=== PATIENT | female | born 1955 | race African-American/Black ===

== ENCOUNTER 2017-07-28 11:43 | Day surgery (SDC) | payer OTHER ==
[2017-07-28 12:06] VITALS: BMI 42.5
[2017-07-28] MEDS ORDERED: MIDAZOLAM HCL 2 MG/2 ML SINGLE DOSE VIAL ONE (13:00)
--- NOTE | 2017-07-28 13:04 | OP ---
Operative Note - Note: Operative Date: 07/28/17 Pre-Operative Diagnosis: Bladder tumor Operation: TURBT Post-Operative Diagnosis: Same as Pre-op Surgeon: Juan Alvarenga MD. Anesthesia: MAC
[2017-07-28] MEDS ORDERED: GENTAMICIN SO4 80 MG/2 ML VIAL IVPB ONE (13:10)
[2017-07-28] MEDS ORDERED: CLINDAMYCIN PHOSPHATE 600 MG/4 ML VIAL ONE (13:10)
[2017-07-28] MEDS ORDERED: CLINDAMYCIN PHOSPHATE 600 MG/4 ML VIAL IVPB ONE (13:10)
[2017-07-28] MEDS ORDERED: GENTAMICIN SO4 80 MG/2 ML VIAL ONE (13:11)
[2017-07-28] MEDS ORDERED: DEXTROSE 5%-0.45% SALINE 1,000 ML IV SCH (13:15)
[2017-07-28] MEDS ORDERED: ONDANSETRON 4 MG/2 ML VIAL IVPUSH PRN (15:19)
[2017-07-28] MEDS ORDERED: oxyCODONE HCL 5 MG TABLET PO PRN (15:19)
[2017-07-28] MEDS ORDERED: LACTATED RINGERS SOLUTION 1,000 ML IV SCH (15:30)
[2017-07-28] MEDS ORDERED: oxyCODONE HCL 5 MG TABLET ONE (16:24)
[2017-07-28 16:27] VITALS: TEMP 97.9
[2017-07-28 17:52] VITALS: BP 140/88; PULSE 72
--- NOTE | 2017-08-01 13:19 | PATH ---
Surgical Pathology Report Patient Name: LOURDES RENE [facility]. Rec. #: [id number] /Age/Gender: 1955 (Age: 61) / F Account: [id number] Location: [facility] SURGICAL Taken: 07/28/2017 Received: 07/29/2017 Reported: 08/01/2017 Physicians: Juan Alvarenga M.D. Specimen(s) Received BLADDER TUMOR Clinical History Bladder tumor Final Diagnosis BLADDER, TUR: NON-INVASIVE HIGH GRADE PAPILLARY UROTHELIAL CARCINOMA. NO FLAT UROTHELIAL CARCINOMA IN SITU IDENTIFIED. MUSCULARIS PROPRIA/DETRUSOR MUSCLE IS PRESENT AND IS FREE OF CARCINOMA. Comment: This report was faxed to Dr. Alvarenga's office on August 01, 2017. Electronically Signed Jamar Villalta M.D. Gross Description Received in formalin labeled "bladder tumor," is a 4.5 x 2.5 x 0.4 cm aggregate of monreal pink soft tissue fragments. The formalin is filtered and the specimen is entirely submitted in 2 cassettes. /07/29/2017 [place]/07/29/2017
== END 2017-07-28 17:25 | disposition home or self-care (01) ==
LOC: JASU-SURG 11:43
PROVIDERS: ATTEND Urology
PROC: 0TBB8ZX Excision of Bladder, Via Natural or Artificial Opening Endoscopic, Diagnostic (ICD-10-PCS; principal; 2017-07-28 13:00)
DX: C67.9 Malignant neoplasm of bladder, unspecified (principal)
CPT/HCPCS: 88307-TC; 94760

== ENCOUNTER 2018-04-18 14:34 | Emergency (ER) | payer OTHER ==
[2018-04-18 15:07] VITALS: BP 143/88; PULSE 69; TEMP 98.1; BMI 32.9
[2018-04-18] MEDS ORDERED: ACETAMINOPHEN 325 MG TABLET (FP) PO ONE (15:25)
--- NOTE | 2018-04-18 15:25 | PDOC ---
History of Present Illness - General History Source: Patient Exam Limitations: No Limitations - History of Present Illness Initial Comments: 04/18/18 16:20 The patient is a 62 year old female with a past medical history of bladder cancer (s/p resection with new tumors, COPD (not on home O2), asthma, and arthritis who is here today for evaluation s/p fall. The patient came to the hospital today for an abdominal CT scan when she fell off scanner bed after trying to shift herself on the bed. The patient reports landing on her head in the left occipital/parietal area and left sided neck pain and ranks her pain as a 10/10 in severity. She denies loss of consciousness after her fall. Denies vomiting, numbness, tingling, or any loss of strength. Allergies: Penicillins, Sulfonamide antibiotics, levofloxacin Social history: no tobacco, drug, or alcohol use PCP: Jamar Albert <Arabella Mckenna - Last Filed: 04/18/18 16:19> - General History Source: Patient Exam Limitations: No Limitations <Romy Lester - Last Filed: 04/18/18 16:49> - General Chief Complaint: Injury Stated Complaint: FALL Time Seen by Provider: 04/18/18 15:12 Past History <Arabella Mckenna - Last Filed: 04/18/18 16:19> - Past Medical History Asthma: Yes Cancer: Yes (bladder cancer) COPD: Yes Diabetes: Yes (BODERLINE) GI Disorders: Yes (GERD) Disorders: Yes (BLADDER TUMOR) HTN: Yes Hypercholesterolemia: Yes Thyroid Disease: No - Suicide/Smoking/Psychosocial Hx Smoking History: Current every day smoker Have you smoked in the past 12 months: Yes Number of Cigarettes Smoked Daily: 10 Information on smoking cessation initiated: No 'Breaking Loose' booklet given: 03/13/18 Hx Alcohol Use: No Drug/Substance Use Hx: No Substance Use Type: None Hx Substance Use Treatment: No <Romy Lester - Last Filed: 04/18/18 16:49> - Past Medical History Allergies/Adverse Reactions: Allergies Allergy/AdvReac Type Severity Reaction Status Date / Time Penicillins Allergy Severe Difficulty Verified 03/13/18 12:15 Breathing Sulfa (Sulfonamide Allergy Severe Difficulty Verified 03/13/18 12:15 Antibiotics) Breathing levofloxacin [From Levaquin] AdvReac Verified 03/13/18 16:02 Home Medications: Ambulatory Orders Losartan Potassium 100 mg PO DAILY 07/28/17 Citalopram Hydrobromide [Celexa -] 40 mg PO DAILY 03/13/18 Cyclobenzaprine HCl [Flexeril -] 10 mg PO BID 03/13/18 Oxycodone HCl/Acetaminophen [Endocet 10-325 mg Tablet] 1 each PO TID PRN Pantoprazole Sodium [Protonix] 40 mg PO DAILY 03/13/18 Doxycycline Hyclate 100 mg PO BID #6 tablet 03/17/18 Pramipexole Dihydrochloride [Mirapex -] 0.125 mg PO TID #30 tablet 03/17/18 Lidocaine 5% Patch [Lidoderm Patch -] 1 patch TP DAILY #7 patch 04/18/18 Review of Systems - Review of Systems Able to Perform ROS?: Yes Comments:: 04/18/18 16:20 GENERAL/CONSTITUTIONAL: +Headache. No fever or chills. No weakness. no sweats. HEAD, EYES, EARS, NOSE AND THROAT: No change in vision or hearing. No ear pain or discharge. No sore throat or mouth pain. No difficulty swallowing. No congestion. CARDIOVASCULAR: No chest pain or palpitations, syncope or edema. RESPIRATORY: No SOB, cough, wheezing, or hemoptysis. GASTROINTESTINAL No nausea/vomiting. No diarrhea or constipation. No bloody stools. GENITOURINARY: No hematuria, dysuria, frequency, urgency or other changes. MUSCULOSKELETAL: No joint or muscle swelling or pain. +upper shoulder and neck pain. SKIN: No rash or changes in skin color or lesions. NEUROLOGIC: No vertigo, loss of consciousness, or change in strength/sensation. No gait instability. HEMATOLOGIC/LYMPHATIC: No anemia, easy bruising/bleeding, or history of blood clots. ALLERGIC/IMMUNOLOGIC: No allergies All other systems reviewed and negative, or as documented in HPI. <Arabella Mckenna - Last Filed: 04/18/18 16:19> *Physical Exam - Vital Signs Last Vital Signs Temp Pulse Resp BP Pulse Ox 98.1 F 69 21 H 143/88 99 04/18/18 14:34 04/18/18 14:34 04/18/18 14:34 04/18/18 14:34 04/18/18 14:34 - Physical Exam Comments: 04/18/18 16:20 General: GCS 15 NAD HEENT: +Left occipital/parietal swelling tender to palpation. NCAT, PERRL, EOMI. Airway intact. Neck: neck supple, no midline C spine tenderness, ROM intact. Resp: Lungs clear, no crepitus Chest: no clavicle or chest wall tenderness CVS: RRR, 2+ pulses throughout. Abdomen: Abdomen soft, obese, nontender, no ecchymosis Back: +Left trapezius tenderness. Back nontender, no midline spinal tenderness, FROM, no stepoffs. MSK: Pelvis stable, FROM in all extremities. No focal msk tenderness in all extremities. OLMEDO x4 Neuro: Alert, no focal neuro deficits. Gait stable. Skin: intact, normal color and well perfused. <Arabella Mckenna - Last Filed: 04/18/18 16:19> - Vital Signs Last Vital Signs Temp Pulse Resp BP Pulse Ox 98.1 F 69 21 H 143/88 99 04/18/18 14:34 04/18/18 14:34 04/18/18 14:34 04/18/18 14:34 04/18/18 14:34 <Romy Lester - Last Filed: 04/18/18 16:49> ED Treatment Course - Medications Given in the ED: ED Medications Discontinued Medications Generic Name Dose Route Start Last Admin Trade Name Freq PRN Reason Stop Dose Admin Acetaminophen 975 mg 04/18/18 15:25 04/18/18 15:35 Tylenol - PO 04/18/18 15:26 975 mg ONCE ONE Administration <Arabella Mckenna - Last Filed: 04/18/18 16:19> Medical Decision Making - Medical Decision Making 04/18/18 16:44 EDGARD 62 year old female with PMH significant for Bladder CA (s/p resection w/ new tumors), COPD (not on home O2), Asthma, Arthritis presenting with fall from CT machine onto head ? left sided occipital/parietal headache. No LOC. no vomiting, neuro changes, AMS or lethargy. Vital signs reviewed, wnl. Prior notes reviewed, including admissions, discharges and consultations. ED course: CT head to r/o bleed/head injury. CT head neg for acute bleed/[employer] injury NEXUS clear, no focal deficits and no midline C spine tenderness. doubt cervical spine injury or bony fx.. Analgesia with PO tylenol and lidoderm patch for left msk/trapezius strain. Dispo: I discussed the physical exam findings, ancillary test results and final diagnoses with the patient. I answered all of the patient's questions. The patient was satisfied with the care received and felt comfortable with the discharge plan and treatment plan. The patient will return to the Emergency Department with any new, persistent or worsening symptoms. Rx supportive care, tylenol/lidoderm patch and otc analgesia. Fall safety prevention discussed. <Romy Lester - Last Filed: 04/18/18 16:49> *DC/Admit/Observation/Transfer - Attestations Scribe Attestion: 04/18/18 16:20 Documentation prepared by Arabella Mckenna, acting as manager medical writing for Romy Lester MD, . <Arabella Mckenna - Last Filed: 04/18/18 16:19> - Discharge Dispostion Decision to Admit order: No <Romy Lester - Last Filed: 04/18/18 16:49> Diagnosis at time of Disposition: Scalp hematoma, Trapezius muscle strain - Discharge Dispostion Disposition: HOME Condition at time of disposition: Improved - Prescriptions Prescriptions: Lidocaine 5% Patch [Lidoderm Patch -] 1 patch TP DAILY #7 patch - Referrals Referrals: Jamar Albert [Primary Care Provider] - - Patient Instructions Printed Discharge Instructions: How to Prevent Falls, DI for Closed Head Injury , DI for Hematoma (Bruise), DI for Cervical Muscle Strain Additional Instructions: you were evaluated in the ED for fall from CT scanner CT head negative for bleeding or injury you can take tylenol as needed for headache. monitor for worsening symptoms such as lethargy, seizure, vomiting, visual or hearing changes, or other associated injury. lidoderm patch for left sided muscle strain. avoid heavy lifting or strenuous activity. FALL PREVENTION AT HOME WHAT YOU NEED TO KNOW There are many different factors that can increase your risk of falls. Falls can happen any time, but the majority of them occur in the home. Fall prevention includes ways to make your home and other areas safer. It also includes ways you can move more carefully to prevent a fall. Health conditions that cause changes in your blood pressure, vision, or muscle strength and coordination may increase your risk for falls. Medicines, including anesthesia, may increase your risk for falls if they make you dizzy, weak, or sleepy. FALL PREVENTION TIPS Stand or sit up slowly. This may help you keep your balance and prevent falls. Do not walk and talk at the same time. Concentrate on the task of walking and continue the conversation after you've reached a safe place. Wear shoes that fit well and have soles that installer soft top. Wear shoes both inside and outside. Use slippers with good installer soft top. Avoid shoes with high heels. Use assistive devices as directed. Your healthcare provider may suggest that you use a cane or walker to help you keep you balance. Be sure you have adequate lighting throughout your house. Keep paths clear. Remove books, shoes and other objects from walkways and stairs. Keep cords for telephones and lamps out of the way so you dont need to walk over them. Remove small rugs or secure them with double-sided tape. This will prevent you from tripping. Use a nightlight when getting out of bed at night. Stay active to maintain overall strength and endurance. Know your limitations. If there is a task you can not complete with ease, do not risk a fall by trying to complete it. Call 911 or have someone else call if: You have fallen and are unconscious You have fallen and cannot move part of your body Contact your healthcare provider if: You have fallen and have pain or a headache You have questions or concerns about your condition or care. - Post Discharge Activity
[2018-04-18] MEDS ORDERED: ACETAMINOPHEN 325 MG TABLET (FP) ONE (15:31)
[2018-04-18] MEDS ORDERED: LIDOCAINE 5% TOPICAL PATCH TP ONE (16:42)
[2018-04-18] MEDS ORDERED: LIDOCAINE 5% TOPICAL PATCH ONE (17:19)
[2018-04-18] MEDS ORDERED: LIDOCAINE PATCH REMOVAL MC SCH (22:00)
== END 2018-04-18 17:24 | disposition home or self-care (01) ==
LOC: JER 14:34
DX: S00.03XA Contusion of scalp, initial encounter (principal); S46.812A Strain of other muscles, fascia and tendons at shoulder and upper arm level, left arm, initial encounter; Y65.8 Other specified misadventures during surgical and medical care; Y78.0 Diagnostic and monitoring radiological devices associated with adverse incidents; Y92.238 Other place in hospital as the place of occurrence of the external cause; Y93.89 Activity, other specified; Y99.8 Other external cause status; J45.909 Unspecified asthma, uncomplicated; J44.9 Chronic obstructive pulmonary disease, unspecified; M12.9 Arthropathy, unspecified; Z85.51 Personal history of malignant neoplasm of bladder
CPT/HCPCS: 70450-TC; 99282-25

== ENCOUNTER 2023-02-10 14:34 | Emergency (ER) | payer OTHER ==
[2023-02-10 14:46] VITALS: BP 129/76; PULSE 75; RESP 18; TEMP 98.2; BMI 41.8
== END 2023-02-10 16:12 | disposition home or self-care (01) ==
LOC: JER 14:34 → JERFT 14:34
DX: M25.561 Pain in right knee (principal); M25.562 Pain in left knee; R22.43 Localized swelling, mass and lump, lower limb, bilateral; M25.572 Pain in left ankle and joints of left foot; S90.512A Abrasion, left ankle, initial encounter; S09.90XA Unspecified injury of head, initial encounter; W10.9XXA Fall (on) (from) unspecified stairs and steps, initial encounter; Y93.01 Activity, walking, marching and hiking
CPT/HCPCS: 73562-TC-LT-FY; 73562-TC-RT-FY; 73610-TC-LT-FY; 99283-25